=== PATIENT | female | born 1985 | race American Indian/Alaskan Native ===

== ENCOUNTER 2021-09-19 16:39 | Emergency (ER) | payer SELFPAY ==
[2021-09-19] MEDS ORDERED: HYDROcodone/ACETAMINOPHEN 10-325MG TAB PO ONE (21:58)
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
[2021-09-19 22:13] VITALS: BP 151/82
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
== END 2021-09-20 00:06 | disposition home or self-care (01) ==
LOC: ED 16:39
DX: M25.551 Pain in right hip (principal); M79.651 Pain in right thigh; M25.511 Pain in right shoulder
CPT/HCPCS: 99283